=== PATIENT | male | born 1980 | race Caucasian/White ===

== ENCOUNTER → 2019-05-27 | Outpatient (CLI) | payer OTHER ==
--- NOTE | 2019-05-28 09:18 | MRI ---
EXAM DESCRIPTION: Lumbar Spine w/o Contrast : Magnetic Resonance Imaging. CLINICAL HISTORY: SPONDYLOSIS WITH RADICULOPATHY LUMBAR REGION COMPARISON: MRI scan cervical spine on the same visit. TECHNIQUE: Multiplanar, multiple standard sequences, non contrast MRI, lumbar spine. FINDINGS: L5-S1: The disc is well visualized on axial T2 series 501, image 3. Disc space is decreased with normal signal in the disc with tiny posterior midline bulge. Posterior elements: Facet joints and posterior flavum ligaments are unremarkable. Normal caliber of the canal and bilateral foramina. L4-L5: Minimal disc space loss with normal signal in the disc. Posterior elements unremarkable. Canal and foramina are patent. L3-L4: Normal signal in the disc with disc space preserved. No bulging. Minimal arthrosis in the bilateral facet joints. Canal and bilateral foramina are patent. L2-L3: Normal signal in the disc with disc space preserved. Minimal thickening of the left hand flavum ligament. Canal and bilateral foramina are patent. L1-L2: Normal signal in the disc with disc space preserved. Posterior elements unremarkable. Canal and foramina are patent. Conus terminates at this level. T12-L1: Normal signal in the disc with disc space preserved. Posterior elements unremarkable. Canal and foramina are patent. Slight L1-L3 dextroscoliosis. Paravertebral soft tissues unremarkable. Distal cord normal signal and caliber. Normal marrow signal in the remaining vertebral bodies and the posterior elements. Vertebral bodies are not compressed at any level. IMPRESSION: Discs are unremarkable. Minimal loss of disc space at L5-S1 and L4-5. Minimal posterior element changes at some levels. No significant degenerative hypertrophy of the facet joints or posterior flavum ligaments. No canal or neural foraminal stenosis. Trace scoliosis to be due to orientation in the scanner. Normal marrow signal in the vertebral column. Electronically signed by: Yonatan Miranda MD 05/28/2019 9:16 AM [facility]
--- NOTE | 2019-05-28 09:37 | MRI ---
EXAM DESCRIPTION: Cervical Spine: MRI. CLINICAL HISTORY: 39 years Male CERVICAL ROOT DISORDER COMPARISON: Radiographs of the cervical spine on April 08. MRI scan of the lumbar spine on this visit. TECHNIQUE: Multiplanar, high-field MRI, multiple sequences, non-contrast Cervical spine. FINDINGS: C4-C5: Minimal disc desiccation with disc space preserved. Small bilateral uncinate spurs. No significant disc bulge. Mild right neural foraminal narrowing. Left neuroforamen and canal are patent and facet joints unremarkable. C5-C6: Disc space preserved with minimal disc desiccation. No bulging. Facet joints are negative. Canal and neural foramina are patent. C6-C7: Disc desiccation and minimal disc space loss. 2 mm retrolisthesis. Bilateral uncinate spurs. 2 mm disc bulge posterior but not touching the cord. Borderline left neural foraminal stenosis with moderate right neural foraminal narrowing. C7-T1: Minimal arthrosis and hypertrophy of the left facet, otherwise negative at this level. Normal signal in the C2-3 disc, C3-4 disc, and T1-T2 disc with no bulging. Disc spaces preserved. Canal and neural foramina are patent. Facet joints unremarkable. Spinal alignment reduced lordosis of the upper segments. No cord compression or cord edema. Atlantoaxial joint negative. Base of the cerebellar tonsils is above the foramen magnum. Paravertebral soft tissues unremarkable. Vertebral bodies are not compressed at any level. Otherwise normal marrow signal in the remaining vertebral bodies and the posterior elements. IMPRESSION: 1. Desiccation C4-C5 disc. Bilateral uncinate spurs. Minimal right neural foraminal narrowing. 2. C6-C7 disc desiccation minimal disc space loss and mild retrolisthesis. 2 mm disc bulge posterior. Borderline left neural foraminal stenosis. Correlate for left C7 radiculopathy. Electronically signed by: Yonatan Miranda MD 05/28/2019 9:35 AM DIRECTOR OF COUNTERINTELLIGENCE
== END ==
LOC: MRI 11:11
PROVIDERS: ATTEND Family Medicine
DX: M47.26 Other spondylosis with radiculopathy, lumbar region (principal); M50.123 Cervical disc disorder at C6-C7 level with radiculopathy; M48.02 Spinal stenosis, cervical region; M25.78 Osteophyte, vertebrae; M51.16 Intervertebral disc disorders with radiculopathy, lumbar region; M51.17 Intervertebral disc disorders with radiculopathy, lumbosacral region

== ENCOUNTER → 2019-09-23 | Outpatient (CLI) | payer OTHER | LOC: LAB.O 13:24 | PROVIDERS: ATTEND Family Medicine | DX: Z30.8 Encounter for other contraceptive management (principal) ==

== ENCOUNTER → 2019-10-25 | Outpatient (CLI) | payer OTHER | LOC: GMAJ 15:34 | PROVIDERS: ATTEND Family Medicine | DX: M47.817 Spondylosis without myelopathy or radiculopathy, lumbosacral region (principal) ==

== ENCOUNTER → 2020-07-13 | Outpatient (CLI) | payer OTHER | LOC: GMAJ 11:39 | PROVIDERS: ATTEND Family Medicine | DX: Z12.5 Encounter for screening for malignant neoplasm of prostate (principal); Z79.899 Other long term (current) drug therapy ==